=== PATIENT | female | born 1980 ===

== ENCOUNTER → 2025-01-06 | Outpatient (CLI) | payer OTHER ==
--- NOTE | 2025-01-06 12:09 | US ---
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 TECHNIQUE: Grayscale and color images taken at the patient's area of concern FINDINGS AND IMPRESSION: Vague hypoechoic oval area within the subcutaneous fat layer at the patient' s palpable site measuring 8 x 5 x 7 mm. No associated vascularity. Findings are nonspecific and do no t have the appearance of a typical lymph node or lipoma. There is posterior through transmission. Pos sible oil cyst. Recommend precautionary follow-up ultrasound in 3 months to reassess. Ultrasound soon er if any progressive enlargement. [facility], , 01/06/2025 12:06 PM
== END | disposition home or self-care (01) ==
LOC: RADUSWWP 11:02
PROVIDERS: ATTEND Family Medicine
DX: D17.9 Benign lipomatous neoplasm, unspecified (principal)
CPT/HCPCS: 76536